=== PATIENT | female | born 1955 | race Caucasian/White ===

== ENCOUNTER 2024-10-26 11:10 | Emergency (ER) | payer MEDICARE, OTHER ==
[~2024-10-26] VITALS: Ht 165.1 cm; Wt 67.6 kg
[2024-10-26] MEDS: IV NORMAL SALINE 1000 ML BAG IV ONE (11:37)
[2024-10-26] MEDS ORDERED: ENOX40DI9 (11:39)
[2024-10-26] MEDS ORDERED: IBUP-2314 PO (11:39)
[2024-10-26] MEDS ORDERED: ONDA4TAB11 SL (11:39)
[2024-10-26] MEDS ORDERED: HYDR-3973 PO (11:39)
[2024-10-26] MEDS ORDERED: FAMO-132 PO (11:49)
[2024-10-26] MEDS ORDERED: PRED20TA PO (11:49)
[2024-10-26] MEDS ORDERED: DIPH25CA83 PO (11:49)
[2024-10-26 11:59] LABS: BASOPHILS # (AUTO) 0.1 K/UL (0.0-0.2); BASOPHILS % (AUTO) 0.3 % (0.0-2.0); EOSINOPHILS # (AUTO) 0.1 K/uL (0.0-0.7); EOSINOPHILS % (AUTO) 0.3 % (0.0-7.0); HEMATOCRIT 25.2 % (31.2-41.9); HEMOGLOBIN 7.8 g/dL (10.9-14.3); LYMPHOCYTES # (AUTO) 1.5 K/uL (0.8-4.8); LYMPHOCYTES % (AUTO) 7.9 % (20.5-51.5); MEAN CORPUSCULAR HEMOGLOBIN 21.9 uug (24.7-32.8); MEAN CORPUSCULAR HGB CONC 31 g/dL (32.3-35.6); MEAN CORPUSCULAR VOLUME 71.1 fL (75.5-95.3); MONOCYTES # (AUTO) 0.2 K/uL (0.1-1.30); MONOCYTES % (AUTO) 1.2 % (0.0-11.0); NEUTROPHILS # (AUTO) 17.3 K/uL (1.8-8.9); NEUTROPHILS % (AUTO) 90.3 % (38.5-71.5); PLATELET COUNT (AUTO) 757 K/uL (179-408); RED BLOOD CELL COUNT(AUTO) 3.54 MIL/uL (3.63-4.92); RED CELL DISTRIBUTION WIDTH 19.6 % (12.3-17.7); WHITE BLOOD COUNT (AUTO) 19.2 K/uL (3.8-11.8)
[2024-10-26 12:06] LABS: CALCIUM 9.3 mg/dL (8.5-10.1); CARBON DIOXIDE 26 mmol/L (21-32); CHLORIDE 101 mmol/L (98-107); CREATININE 0.8 mg/dL (0.6-1.3); GLUCOSE 133 mg/dL (74-106); POTASSIUM 3.4 mmol/L (3.5-5.1); SODIUM SERUM 137 mmol/L (136-145); UREA NITROGEN, BLOOD 14 mg/dL (7-18)
[2024-10-26 12:08] LABS: DIFFERENTIAL COMMENT 1
[2024-10-26 13:24] VITALS: BP 117/64; TEMP 97.6; O2SAT 97
== END 2024-10-26 13:19 | disposition home or self-care (01) ==
LOC: ER 11:10
DX: R07.89 Other chest pain (principal); T45.4X5A Adverse effect of iron and its compounds, initial encounter; R06.02 Shortness of breath; R55 Syncope and collapse; D50.9 Iron deficiency anemia, unspecified; D72.829 Elevated white blood cell count, unspecified; D75.839 Thrombocytosis, unspecified; E87.6 Hypokalemia; Z79.52 Long term (current) use of systemic steroids; Z86.79 Personal history of other diseases of the circulatory system; Z85.038 Personal history of other malignant neoplasm of large intestine; Z85.05 Personal history of malignant neoplasm of liver; Y92.89 Other specified places as the place of occurrence of the external cause
CPT/HCPCS: 99285; 96360; 71045; 96361; 80048; 82962; 85025; 84484; 36415; 93005; J7040; A4606; A4663